=== PATIENT | female | born 1955 | race Caucasian/White ===

== ENCOUNTER → 2016-09-05 | Outpatient (CLI) | payer OTHER ==
--- NOTE | 2016-09-05 16:18 | CPEKG ---
Heart Rate: 58 RR Interval: 1034 P-R Interval: 180 QRSD Interval: 82 QT Interval: 412 QTC Interval: 405 P [place]: 77 QRS [place]: 82 T Wave [place]: 60 EKG Severity - NORMAL ECG - EKG Impression: SINUS RHYTHM Electronically Signed By: Arron Mora 06-Sep-2016 16:55:23
== END ==
LOC: FCP 15:42
PROVIDERS: ATTEND Obstetrics & Gynecology Gynecologic Oncology
DX: Z01.818 Encounter for other preprocedural examination (principal); C54.1 Malignant neoplasm of endometrium

== ENCOUNTER → 2017-01-13 | Outpatient (CLI) | payer OTHER | LOC: FIMAGING 15:24 | PROVIDERS: ATTEND Obstetrics & Gynecology | DX: Z12.31 Encounter for screening mammogram for malignant neoplasm of breast (principal) | CPT/HCPCS: G0202 ==

== ENCOUNTER → 2017-03-13 | Outpatient (CLI) | payer OTHER | LOC: FIMAGING 10:53 | PROVIDERS: ATTEND Psychiatry & Neurology Neurology | DX: G43.909 Migraine, unspecified, not intractable, without status migrainosus (principal) ==

== ENCOUNTER 2017-04-23 01:48 | Observation (INO) | payer OTHER ==
--- NOTE | 2017-04-23 01:55 | EDPHY ---
H & P Stated Complaint: 61 HPI/ROS: HPI CHIEF COMPLAINT: Chest pain, left arm heaviness HISTORY OF PRESENT ILLNESS: Patient very pleasant 61-year-old female she presents emergency room with chest discomfort and left arm heaviness. She reports that approximately around 1:00 a.m. she was trying to go to sleep or was almost to sleep and developed sudden-onset severe 10/10 left-sided chest discomfort that she describes this evening or sharp in nature it stays in the left side of her chest and then radiated to her back. She states since resolved however she continues to have left arm heaviness. No weakness. Denies pleuritic pain or shortness of breath. With this sensation of pain in her chest she had nausea. She now states she feels very anxious, the pain was severe she decided come here to the emergency room by private vehicle is at bedside. At this time she has no chest pain but does complain continuing of left arm heaviness. Past Medical History: Denies medical history except for uterine cancer Past Surgical History: Total hysterectomy Social History: Denies daily use of drugs alcohol tobacco products. Family History: Denies ROS REVIEW OF SYSTEMS: A comprehensive 10 point review of systems is otherwise negative aside from elements mentioned in the history of present illness. Exam Constitutional appears anxious, triage nursing summary reviewed, vital signs reviewed, awake/alert. Eyes normal conjunctivae and sclera, EOMI, PERRLA. HENT normal inspection, atraumatic, moist mucus membranes, no epistaxis, neck supple/ no meningismus, no raccoon eyes. Respiratory clear to auscultation bilaterally, normal breath sounds, no respiratory distress, no wheezing. Cardiovascular rate normal, regular rhythm, no murmur, no edema, distal pulses normal. Gastrointestinal soft, non-tender, no rebound, no guarding, normal bowel sounds, no distension, no pulsatile mass. Genitourinary no CVA tenderness. Musculoskeletal no midline vertebral tenderness, full range of motion, no calf swelling, no tenderness of extremities, no meningismus, good pulses, neurovascularly intact. Skin pink, warm, & dry, no rash, skin atraumatic. Neurologic awake, alert and oriented x 3, AAOx3, moves all 4 extremities equally, motor intact, sensory intact, CN II-XII intact, normal cerebellar, normal vision, normal speech. Psychiatric normal mood/affect. Heme/Lymph/Immune no lymphadenopathy. Differential diagnosis includes but is not limited to: ACS, atypical chest pain , pneumothorax, pneumonia, pulmonary embolism, aortic dissection, congestive heart failure, tumor, musculoskeletal pain, esophageal pain, GERD, peptic ulcer disease, pancreatitis Medical Decision Making: Plan for this patient full radiographer cardiac catheterization IV establishment, full-dose aspirin, chest x-ray, EKG, rule out acute coronary syndrome, check troponin, check D-dimer, and re-evaluate. Re-evaluation: EKG interpretation by me on record in Work in Field system. Impression time of EKG 1:59 a.m., sinus rhythm rate of 59. Do not appreciate acute ischemic change. No ST elevation. No ST depression. No significant T-wave abnormalities. No prolonged intervals. ED x-ray chest one view: Negative for acute cardiopulmonary disease. 0305: I did re-evaluate this patient at this time. She is resting comfortably. Denies chest pain or shortness of breath. Denies sharp stabbing pain in her chest I did go over blood work she has a negative troponin, negative D-dimer. I did recommend given that she had sudden-onset rather severe tearing pain in her chest that did go to her back that we proceed with CT scan of her chest with IV contrast rule out aortic dissection or aneurysm. She has agreed for this. 0346: CT chest with IV contrast called to me by Dr. Miner. Negative for aortic dissection or aneurysm. No evidence of acute cardiopulmonary abnormality on CT chest. 0417: Patient is chest pain-free at this time. Patient be admitted to the hospitalist service spoke with Dr. Hoyt for admission for chest discomfort. Recommend serial enzymes serial EKGs and stress test. Updated patient about this she is fine with this plan. Source: Patient - Personal History Current Tetanus Diphtheria and Acellular Pertussis (TDAP): Unsure - Medical/Surgical History Hx Asthma: No Hx Chronic Respiratory Disease: No Hx Diabetes: No Hx Cardiac Disease: No Hx Renal Disease: No Hx Cirrhosis: No Hx Alcoholism: No Hx HIV/AIDS: No Hx Splenectomy or Spleen Trauma: No Other PMH: uterine ca sx - Social History Smoking Status: Never smoked Constitutional: Initial Vital Signs Temperature (C) 36.4 C 04/23/17 01:51 Heart Rate 62 04/23/17 01:51 Respiratory Rate 16 04/23/17 01:51 Blood Pressure 125/67 H 04/23/17 01:51 O2 Sat (%) 97 04/23/17 01:51 O2 Delivery Mode Nasal Cannula O2 (L/minute) 2 Allergies/Adverse Reactions: No Known Allergies Allergy (Verified 04/23/17 01:51) Home Medications: Medication Instructions Recorded Acetaminophen [Tylenol 325mg (*)] 325 mg PO DAILY PRN 04/23/17 Ibuprofen [Motrin (*)] 200 mg PO DAILY PRN 04/23/17 Medical Decision Making - Data Points Laboratory Results: Laboratory Results 04/23/17 02:06 04/23/17 02:06 Medications Given: Discontinued Medications Aspirin (Aspirin) 324 mg PO EDNOW ONE Stop: 04/23/17 02:02 Last Admin: 04/23/17 02:07 Dose: 324 mg Enoxaparin Sodium (Lovenox) 40 mg SC DAILY FLOWER Stop: 10/20/17 08:59 Last Admin: 04/23/17 09:04 Dose: Not Given Sodium Chloride (Ns) 1,000 mls @ 0 mls/hr IV EDNOW ONE; Wide Open PRN Reason: Protocol Stop: 04/23/17 02:02 Last Admin: 04/23/17 02:09 Dose: 1,000 mls Departure - Departure Disposition: [facility] Inpatient Acute Clinical Impression: Chest pain Qualifiers: Chest pain type: unspecified Qualified Code(s): R07.9 - Chest pain, unspecified Condition: Fair
[2017-04-23] MEDS ORDERED: NS 1,000 ML IV ONE (02:01)
[2017-04-23] MEDS ORDERED: ASPIRIN 81 MG CHEWABLE TAB PO ONE (02:01)
--- NOTE | 2017-04-23 02:01 | CPEKG ---
Heart Rate: 59 RR Interval: 1017 P-R Interval: 140 QRSD Interval: 84 QT Interval: 432 QTC Interval: 428 P [place]: 55 QRS [place]: 77 T Wave [place]: 62 EKG Severity - NORMAL ECG - EKG Impression: SINUS RHYTHM Electronically Signed By: Fidel Fishman 23-Apr-2017 07:56:38
[2017-04-23 02:14] LABS: PLATELET COUNT 264 10^3/uL (150-400)
[2017-04-23 02:23] LABS: INR 1.01 (0.83-1.16); PROTIME(PATIENT) 13.5 SEC (12.0-15.0)
[2017-04-23 02:34] LABS: CREATINE KINASE 68 IU/L (0-156)
[2017-04-23] MEDS ORDERED: IOPAMIDOL (ISOVUE 370) 100 ML BTL IV ONE (03:08)
[2017-04-23] MEDS ORDERED: ONDANSETRON 4 MG/2 ML VIAL IVP PRN (04:18)
[2017-04-23] MEDS ORDERED: ACETAMINOPHEN 325 MG TAB PO PRN (04:18)
[2017-04-23] MEDS ORDERED: ONDANSETRON DISINTEGRATING 4 MG TAB PO PRN (04:18)
--- NOTE | 2017-04-23 05:23 | PDGENHP ---
History and Physical - Chief Complaint Chest pain - History of Present Illness 61 yo F presents with chest pain. Patient was woken from sleep around 4 AM with severe left sided chest pain. Pain then spread to her back and L arm. The pain lasted about 5 minutes and then left a lingering "muscle cramp" feeling in her L arm. Patient has no prior cardiac history. She is a non-smoker and thinks her sister may have some heart problems. In the ED work-up was unremarkable including CTA of her chest. She is being admitted for inpatient risk stratification. History Information - Allergies/Home Medication List Allergies/Adverse Reactions: No Known Allergies Allergy (Verified 04/23/17 01:51) Home Medications: Denies 07/18/09 [Last Taken Unknown] I have personally reviewed and updated: family history, medical history - Past Medical History no pertinent PMH - Surgical History Reports: no pertinent surgical hx - Family History Positive for: CAD - Social History Smoking Status: Never smoked Review of Systems Review of Systems: ROS: 10pt was reviewed & negative except for what was stated in HPI & below Physical Exam Physical Exam: Temp Pulse Resp BP Pulse Ox 36.4 C 60 18 141/74 H 100 04/23/17 01:51 04/23/17 05:02 04/23/17 05:02 04/23/17 05:02 04/23/17 05:02 O2 (L/minute) 2 Constitutional: no apparent distress, not in pain Eyes: PERRL, EOMI Ears, Nose, Mouth, Throat: moist mucous membranes, no oral mucosal ulcers Cardiovascular: regular rate and rhythym, no murmur, rub, or gallop Respiratory: no respiratory distress, clear to auscultation Gastrointestinal: normoactive bowel sounds, soft, non-tender abdomen Skin: warm, normal color Musculoskeletal: full muscle strength, no muscle tenderness Neurologic: AAOx3, CN II-XII Intact Psychiatric: interacting appropriately, not anxious Lab Data & Imaging Review 04/23/17 02:06 04/23/17 02:06 WBC 5.91 10^3/uL (3.80-9.50) 04/23/17 02:06 RBC 4.24 10^6/uL (4.18-5.33) 04/23/17 02:06 Hgb 13.9 g/dL (12.6-16.3) 04/23/17 02:06 Hct 39.2 % (38.0-47.0) 04/23/17 02:06 MCV 92.5 fL (81.5-99.8) 04/23/17 02:06 MCH 32.8 pg (27.9-34.1) 04/23/17 02:06 MCHC 35.5 g/dL (32.4-36.7) 04/23/17 02:06 RDW 12.3 % (11.5-15.2) 04/23/17 02:06 Plt Count 264 10^3/uL (150-400) 04/23/17 02:06 MPV 9.8 fL (8.7-11.7) 04/23/17 02:06 Neut % (Auto) 30.5 % (39.3-74.2) L 04/23/17 02:06 Lymph % (Auto) 61.4 % (15.0-45.0) H 04/23/17 02:06 Phelps % (Auto) 5.2 % (4.5-13.0) 04/23/17 02:06 Eos % (Auto) 1.9 % (0.6-7.6) 04/23/17 02:06 Baso % (Auto) 0.8 % (0.3-1.7) 04/23/17 02:06 Nucleat RBC Rel Count 0.0 % (0.0-0.2) 04/23/17 02:06 Absolute Neuts (auto) 1.80 10^3/uL (1.70-6.50) 04/23/17 02:06 Absolute Lymphs (auto) 3.63 10^3/uL (1.00-3.00) H 04/23/17 02:06 Absolute Monos (auto) 0.31 10^3/uL (0.30-0.80) 04/23/17 02:06 Absolute Eos (auto) 0.11 10^3/uL (0.03-0.40) 04/23/17 02:06 Absolute Basos (auto) 0.05 10^3/uL (0.02-0.10) 04/23/17 02:06 Absolute Nucleated RBC 0.00 10^3/uL (0-0.01) 04/23/17 02:06 Immature Gran % 0.2 % (0.0-1.1) 04/23/17 02:06 Immature Gran # 0.01 10^3/uL (0.00-0.10) 04/23/17 02:06 PT 13.5 SEC (12.0-15.0) 04/23/17 02:06 INR 1.01 (0.83-1.16) 04/23/17 02:06 APTT 28.1 SEC (23.0-38.0) 04/23/17 02:06 D-Dimer < 0.27 ug/mLFEU (0.00-0.50) 04/23/17 02:06 Sodium 146 mEq/L (135-145) H 04/23/17 02:06 Potassium 3.9 mEq/L (3.5-5.2) 04/23/17 02:06 Chloride 105 mEq/L (97-110) 04/23/17 02:06 Carbon Dioxide 25 mEq/l (22-31) 04/23/17 02:06 Anion Gap 16 mEq/L (8-16) 04/23/17 02:06 BUN 10 mg/dL (7-23) 04/23/17 02:06 Creatinine 0.7 mg/dL (0.6-1.0) 04/23/17 02:06 Estimated GFR > 60 04/23/17 02:06 Glucose 81 mg/dL (70-100) 04/23/17 02:06 Calcium 9.7 mg/dL (8.5-10.4) 04/23/17 02:06 Magnesium 1.8 mg/dL (1.6-2.3) 04/23/17 02:06 Total Bilirubin 0.3 mg/dL (0.1-1.4) 04/23/17 02:06 Conjugated Bilirubin 0.3 mg/dL (0.0-0.5) 04/23/17 02:06 Unconjugated Bilirubin 0.0 mg/dL (0.0-1.1) 04/23/17 02:06 AST 25 IU/L (14-46) 04/23/17 02:06 ALT 41 IU/L (9-52) 04/23/17 02:06 Alkaline Phosphatase 56 IU/L (38-126) 04/23/17 02:06 Creatine Kinase 68 IU/L (0-156) 04/23/17 02:06 CK-MB (CK-2) Fraction 0.53 ng/mL (0.00-3.19) 04/23/17 02:06 Troponin I < 0.012 ng/mL (0.000-0.034) 04/23/17 02:06 NT-Pro-B Natriuret Pep 122 pg/mL (0-125) 04/23/17 02:06 Total Protein 7.0 g/dL (6.3-8.2) 04/23/17 02:06 Albumin 4.3 g/dL (3.5-5.0) 04/23/17 02:06 Lipase 158 IU/L (23-300) 04/23/17 02:06 Imaging Review: CTA Chest with no acute findings per preliminary read. Visualized and Interpreted EKG results: Yes EKG Interpretation: Positive for: normal sinsus rhythm Assessment & Plan Assessment: 61 yo F presents with chest pain. Plan: 1. Chest pain - Atypical from a cardiac standpoint noting the pain woke patient from sleep, lasted only 5 minutes, and has no relation to exertion of rest. However, noting age and severity of pain, decision was made to admit patient for inpatient risk stratification. CTA chest ruled out dissection, pneumothorax , and pulmonary embolism. - Admit to PCU for observation - Monitor on telemetry, trend cardiac enzymes - Treadmill stress test ordered Diet - NPO pending risk stratification Code - Full Ppx - LMWH Dispo - Admit to PCU under observation status
[2017-04-23 07:19] VITALS: RESP 15
[2017-04-23] MEDS ORDERED: ENOXAPARIN 40 MG/0.4 ML SYR SC SCH (09:00)
[2017-04-23 11:04] VITALS: BP 124/66; PULSE 56; TEMP 97.8; O2SAT 97
--- NOTE | 2017-04-23 12:00 | ASMTCMCOM ---
CM Note CM Note Notes: 04/23/2017 Case Management Note Discussed pt in rounds. There are no case management d/c needs identified d/t pt age, marital status and activity levels prior to admission. There are no PT or OT evals ordered at this time. Case Management d/c poc: home independent with follow up as directed. Case Management available if needs change. Date Signed: 04/23/2017 11:59 AM Electronically Signed By:Moraima Broderick RN
--- NOTE | 2017-04-23 14:07 | PDDCSUM ---
Discharge Summary Discharge Summary: DISCHARGE DIAGNOSES: -chest pain, resolved, unclear etiology -rule out myocardial infarction -no arrhythmia on cardiac EKG monitoring -absence of heart failure or hemodynamic instability -normal results on exercise treadmill stress testing PROCEDURES: Exercise treadmill stress testing Júnior protocol HOSPITAL COURSE SUMMARY: This patient came to the emergency room after being awakened by a pain in the upper anterior chest and into the left shoulder and arm. There are no associated symptoms. As she presented here this symptom was resolving. There was no arrhythmia, no heart failure, no abnormality vital signs. Her 1st EKG was normal and 2 troponins were normal. She had no recurrence of her symptoms and no other new or different symptoms. She had been otherwise feeling well and there was no fever. CT angiogram of the chest had been done with no evidence of any concerning abnormalities or anything to explain her symptoms. She underwent a Júnior protocol treadmill stress test, with 99% of maximum predicted heart rate chief, normal heart rate and blood pressure response to exercise and recovery after exercise, absence of any concerning symptoms and absence of any EKG changes. Overall her risk for any concerning cardiac episodes is quite low. She is felt stable for discharge from hospital. It is discussed with the patient that the cause for her pain is unidentified at this time if she continues to have episodes of pain she should seek further consultation to look for a cause. She is also aware that there are potential false negative test results on treadmill stress testing, and that we can never be 100% certain that her pain was not a coronary induced pain without angiography but that angiography is not currently indicated. FOLLOW-UP PLAN: She does not have a primary care physician but plans to engage with the primary care physician in the very near future. She she knows to follow up either with primary care or if necessary in the ER for recurrent pain symptoms and she is aware of warning symptoms or high risk symptoms.
--- NOTE | 2017-04-23 14:52 | CPR ---
[f rep st] NONINVASIVE CARDIAC PROCEDURE REPORT PROCEDURE: Exercise treadmill test. SUPERVISING JACK SPINNER: Jeremi Romero MD. INDICATION FOR PROCEDURE: Episode of chest pressure this morning. PRE: After obtaining informed consent, the patient was placed on electrocardiogram. Initial EKG fara wing sinus rhythm, normal axis, no significant ST or T-wave abnormalities, occasional unifocal premat ure ventricular contraction. Initial SpO2 is 98%, blood pressure 128/78. Patient denies any chest p ain, shortness of breath, or symptoms suggesting of ischemia. STRESS: The patient was placed on exercise treadmill. Using standard Júnior protocol with the follow ing findings: 1. Patient exercised for 8 minutes. 2. 9.3 METS. 3. Patient obtained a heart rate of 157 beats per minute, which was 99% of MPHR. 4. Patient had no chest pain or symptoms of ischemia at peak exercise. 5. Electrocardiogram did note sub-millimeter upsloping ST depression in inferior lateral leads at pe ak exercise (nondiagnostic for ischemia). 6. SpO2 greater than 90% throughout testing. 7. BP response resting 128/78, peak 154/80. 8. No arrhythmias noted during stress. 9. Testing was stopped due to maximum effort. 10. Palumbo treadmill score of 8, placing patient at low cardiovascular risk. RECOVER: Patient recovered for 5 minutes, remained asymptomatic. EKG returned to baseline. Occasio nal premature ventricular contraction noted during recovery phase. IMPRESSION: 61-year-old female reporting episode of chest pressure last evening, negative troponins, noted to have occasional PVC in rest and recovery phases, no significant ST shift at peak exercise s uggesting of ischemia. Palumbo treadmill score of 8, placing patient at low cardiovascular risk. Resul ts reviewed with Dr. Romero and reported to Hospital Services. /[id number]/MODL
--- NOTE | 2017-04-23 16:35 | ASDISCHSUM ---
Discharge Information Plan Status:Home with No Needs Medically Cleared to Leave:04/22/2017 Discharge Date:04/23/2017 02:29 PM CM D/C Disposition:Home, Routine, Self-Care ADT D/C Disposition:Home, Routine, Self-Care Projected Discharge Date:04/23/2017 02:29 PM Transportation at D/C: Discharge Delay Reason: Follow-Up Date:04/23/2017 02:29 PM Discharge Slot: Final Diagnosis: Placement Information Patient Contact Information Contact Name:MILADIS Relationship: Address:[address] City:[place] Alternate Phone: State/Zip Code:[place] [address] Email: Financial Information Financial Class:[email or web address] Primary Plan Desc:IJEOMA VANEGAS Primary Plan Number:[id number] Secondary Plan Desc: Secondary Plan Number: Assessment Information [facility] CM Progress Note CM Note CM Note Notes: 04/23/2017 Case Management Note Discussed pt in rounds. There are no case management d/c needs identified d/t pt age, marital status and activity levels prior to admission. There are no PT or OT evals ordered at this time. Case Management d/c poc: home independent with follow up as directed. Case Management available if needs change. Date Signed: 04/23/2017 11:59 AM Electronically Signed By:Moraima Broderick RN LACE LACE Length of stay for Answers: Less than 1 day current admission Acuity / Level of Answers: No Care: Did the patient have an inpatient admission? Comorbidities - select Answers: Other all that apply # of Emergency department Answers: 0 visits in the last 6 months Score: 1 Date Signed: 04/23/2017 04:34 PM Electronically Signed By:Moraima Broderick RN Intervention Information
== END 2017-04-23 14:29 | disposition home or self-care (01) ==
LOC: F2W 05:16
PROVIDERS: ADMIT Student in an Organized Health Care Education/Training Program; ATTEND Student in an Organized Health Care Education/Training Program
DX: R07.9 Chest pain, unspecified (principal); Z85.42 Personal history of malignant neoplasm of other parts of uterus
CPT/HCPCS: G0378; J1650; Q9967

== ENCOUNTER → 2017-10-17 | Outpatient (CLI) | payer OTHER | LOC: FIMAGING 09:23 | PROVIDERS: ATTEND Obstetrics & Gynecology | DX: Z13.820 Encounter for screening for osteoporosis (principal); M85.89 Other specified disorders of bone density and structure, multiple sites; Z78.0 Asymptomatic menopausal state; Z85.42 Personal history of malignant neoplasm of other parts of uterus ==

== ENCOUNTER → 2018-01-16 | Outpatient (CLI) | payer OTHER | LOC: FIMAGING 14:45 | PROVIDERS: ATTEND Obstetrics & Gynecology | DX: Z12.31 Encounter for screening mammogram for malignant neoplasm of breast (principal) ==

== ENCOUNTER → 2018-02-06 | Outpatient (CLI) | payer OTHER | LOC: FIMAGING 11:46 | PROVIDERS: ATTEND Obstetrics & Gynecology | DX: R92.8 Other abnormal and inconclusive findings on diagnostic imaging of breast (principal) ==

== ENCOUNTER → 2018-06-26 | Outpatient (CLI) | payer OTHER | LOC: FIMAGING 13:47 | PROVIDERS: ATTEND Internal Medicine | DX: M85.89 Other specified disorders of bone density and structure, multiple sites (principal); E78.5 Hyperlipidemia, unspecified ==

== ENCOUNTER → 2018-06-26 | Outpatient (CLI) | payer OTHER | LOC: FIMAGING 13:55 | PROVIDERS: ATTEND Internal Medicine | DX: E78.5 Hyperlipidemia, unspecified (principal); M85.88 Other specified disorders of bone density and structure, other site; Z95.0 Presence of cardiac pacemaker ==